=== PATIENT | male | born 1990 | race Caucasian/White ===

== ENCOUNTER 2017-09-26 06:17 | Emergency (ER) | payer BC ==
[2017-09-26 06:26] VITALS: BP 161/106; PULSE 83; O2SAT 99
[2017-09-26] MEDS ORDERED: AMOXIL 500 MG PO ONE (06:40)
[2017-09-26] MEDS ORDERED: XYLOCAINE VISCOUS 2% 20 ML CUP PO ONE (06:41)
[2017-09-26] MEDS ORDERED: MAALOX ES 30 ML UNIT DOSE PO ONE (06:41)
[2017-09-26] MEDS ORDERED: CETACAINE SPRAY TP ONE (06:41)
[2017-09-26] MEDS ORDERED: XYLOCAINE HCl Viscous ONE (06:46)
[2017-09-26] MEDS ORDERED: MAALOX ES 30 ML UNIT DOSE ONE (06:46)
--- NOTE | 2017-09-26 06:49 | ERPHSYRPT ---
- History of Present Illness Time Seen by Provider: 09/26/17 06:40 Source: patient Exam Limitations: no limitations Patient Subjective Stated Complaint: Pt arrives to ER with c/o right sided lower dental pain began monday night from broken tooth with pain radiating into jaw. Denies fever. Triage Nursing Assessment: see above Physician History: Pt started c/o dental pain 2 days ago in the right upper molar area, denies any injury, recent dental surgery, fever, severe headaches, vomiting, other complaints. Timing/Duration: gradual onset Severity: severe ENT Location: dental Prearrival Treatment: no prearrival treatment Modifying Factors: Improves With: nothing Associated Symptoms: denies symptoms Allergies/Adverse Reactions: No Known Drug Allergies Allergy (Verified 09/26/17 06:26) Home Medications: No Home Meds [No Home Meds] 03/29/16 [History] Hx Tetanus, Diphtheria Vaccination/Date Given: No (unknown) Hx Influenza Vaccination/Date Given: Yes Hx Pneumococcal Vaccination/Date Given: No - Review of Systems Constitutional: No Symptoms Ears, Nose, & Throat: Other (dental pain) Respiratory: No Symptoms Cardiac: No Symptoms All Other Systems: Reviewed and Negative - Past Medical History Pertinent Past Medical History: No Neurological History: No Pertinent History - Past Surgical History Past Surgical History: Yes Other Surgical History: RT FEMUR fx - Social History Smoking Status: Current every day smoker How long have you smoked: 7 YEARS Exposure to second hand smoke: Yes Drug Use: none Patient Lives Alone: No - Nursing Vital Signs Nursing Vital Signs: Initial Vital Signs Temperature 98 F 09/26/17 06:22 Pulse Rate 83 09/26/17 06:22 Respiratory Rate 20 09/26/17 06:22 Blood Pressure 161/106 09/26/17 06:22 O2 Sat by Pulse Oximetry 99 09/26/17 06:22 Pain Scale Pain Intensity 8 - Physical Exam General Appearance: no apparent distress Eye Exam: bilateral eye: normal inspection Nasal Exam: normal inspection Throat Exam: pharynx normal, dental tenderness (right upper molar ( #1-2)) Neck Exam: normal inspection, non-tender, supple, trachea midline, No JVD, No lymphadenopathy (R), No lymphadenopathy (L) Cardiovascular/Respiratory Exam: chest non-tender, normal breath sounds, regular rate/rhythm, heart sounds normal Abdominal Exam: non-tender Neurologic Exam: alert, oriented x 3, normal mood/affect Skin Exam: normal color, warm, dry SpO2 Interpretation: normal SpO2: 99 Oxygen Delivery: Room Air - Course Nursing assessment & vital signs reviewed: Yes Ordered Tests: Medication Summary Generic Name Dose Route Start Last Admin Trade Name Linkq PRN Reason Stop Dose Admin Al Hydrox/Mg Hydrox/Simethicone 30 ml 09/26/17 06:41 Maalox Es 30 Ml Unit Dose PO 09/26/17 06:42 STAT ONE Benzocaine/Butamben/Tetracaine HCl 2 spray 09/26/17 06:41 Cetacaine [place] TP 09/26/17 06:42 ONCE ONE Lidocaine HCl 7.5 ml 09/26/17 06:41 Xylocaine Viscous 2% 20 Ml Cup PO 09/26/17 06:42 STAT ONE Discontinued Medications Generic Name Dose Route Start Last Admin Trade Name Freq PRN Reason Stop Dose Admin Amoxicillin 500 mg 09/26/17 06:40 Amoxil 500 Mg PO 09/26/17 06:41 STAT ONE - Progress Progress: improved Progress Note: 09/26/17 06:45 I instructed patient to contact Dentist today for dental work, return if severe swelling, headaches, vomiting, high fever> 102 F. 09/26/17 06:46 He was given a dental ball and Amoxicillin. - Departure Time of Disposition: 06:46 Departure Disposition: Home Clinical Impression: Dental caries Condition: Stable Critical Care Time: No Referrals: DOCTOR,NO FAMILY [Primary Care Provider] - Instructions: Dental Pain (DC), Tooth Decay, Adult (DC) Additional Instructions: Follow up with dentist, return if severe headaches, severe swelling, difficulty swallowing, vomiting, high fever> 102 F! Prescriptions: Amoxicillin 500 mg PO TID #30 capsule Diclofenac Sodium 50 mg [Voltaren 50 mg] 50 mg PO TID PRN #15 tablet.ec PRN Reason: Pain
[2017-09-26] MEDS ORDERED: AMOXIL 500 MG ONE (06:53)
== END 2017-09-26 07:07 | disposition home or self-care (01) ==
LOC: ED 06:17
DX: K02.9 Dental caries, unspecified (principal)
CPT/HCPCS: 99283; A9270-GY